=== PATIENT | female | born 1985 | race American Indian/Alaskan Native ===

== ENCOUNTER 2017-08-05 20:56 | Emergency (ER) | payer SELFPAY ==
[2017-08-06 01:07] VITALS: BP 120/80
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
--- NOTE | 2017-08-06 07:58 | XRay Report ---
ROUTINE CHEST, TWO VIEWS: HISTORY: Wheezing. The trachea, heart, mediastinal contour, lung graham and bony thorax are unremarkable. IMPRESSION: Unremarkable chest x-ray.
== END 2017-08-06 01:50 | disposition home or self-care (01) ==
LOC: EDSEX → ED 20:56
DX: J45.901 Unspecified asthma with (acute) exacerbation (principal)
CPT/HCPCS: 71020; 94640; 99283

== ENCOUNTER 2018-01-01 15:52 | Emergency (ER) | payer SELFPAY ==
[2018-01-01 15:58] VITALS: BP 108/58
[2018-01-01] MEDS ORDERED: NORCO 5/325 PO ONE (17:28)
[2018-01-01] MEDS ORDERED: ZOFRAN ODT PO ONE (17:28)
--- NOTE | 2018-01-01 17:29 | Emergency Department Report ---
Chief Complaint: Abdominal Pain Stated Complaint: RT FLANK PAIN - HPI History of Present Illness: 32 yo female presents with right flank pain. Last week she had symptoms of UTI. She treated UTI with AZO. - Exam Vital Signs: Vital Signs 01/01/18 15:55 Temperature 97.9 F Pulse Rate 85 Respiratory 18 Rate Blood Pressure 108/58 O2 Sat by Pulse 98 Oximetry MSE screening note: Focused history and physical exam performed. Due to findings the following was ordered: ED Disposition for MSE Condition: Stable Instructions: Abdominal Pain (ED)
--- NOTE | 2018-01-01 17:35 | Emergency Department Report ---
ED Female HPI - General Chief complaint: Abdominal Pain Stated complaint: RT FLANK PAIN Time Seen by Provider: 01/01/18 17:00 Source: patient, family, EMS Mode of arrival: Ambulatory Limitations: No Limitations - History of Present Illness Initial comments: Patient complain right flank pain 2 days. Reports nausea with some vomiting, positive urinary burning denies any urinary burning frequency or urgency. Denies any vaginal discharge or bleeding. Pain is located right flank, 9 out of 10, crampy and throbbing. No cyax-gfy-sikctww medication taken. Denies any abdominal pain. She tolerated oral liquid but she said not much. she's had similar episode in the past and denies any history of kidney stones. 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 denies: vaginal discharge, vaginal bleeding, abdominal pain, fever/chills, headaches, loss of appetite, hematuria, rash, seizure, shortness of breath, syncope, weakness - Related Data Sexually active: No Previous Rx's Medication Instructions Recorded Last Taken Type ALBUTEROL Inhaler [Proair] 1 puff IH TID #1 inha 08/06/17 Unknown Rx HYDROcodone/APAP 5-325 [[place] 1 each PO Q6HR PRN #12 tablet 01/01/18 Unknown Rx 5/325] Ondansetron [Zofran Odt] 4 mg PO Q8H PRN #12 tab.rapdis 01/01/18 Unknown Rx Sulfamethoxazole/Trimethoprim 1 each PO BID 10 Days #20 tablet 01/01/18 Unknown Rx [Bactrim DS TAB] Allergies Allergy/AdvReac Type Severity Reaction Status Date / Time No Known Allergies Allergy Unverified 08/05/17 21:04 ED Review of Systems ROS: Stated complaint: RT FLANK PAIN Other details as noted in HPI Comment: All other systems reviewed and negative Constitutional: no symptoms reported Eyes: denies: eye discharge ENT: denies: ear pain, throat pain, congestion Respiratory: no symptoms reported Cardiovascular: denies: chest pain, palpitations, dyspnea on exertion, orthopnea Gastrointestinal: nausea, vomiting. denies: abdominal pain, diarrhea, constipation, hematemesis, melena, hematochezia Genitourinary: denies: dysuria, discharge, abnormal menses Musculoskeletal: back pain. denies: joint swelling, arthralgia, myalgia Skin: denies: rash Neurological: denies: headache, weakness, numbness, paresthesias, confusion, abnormal gait, vertigo ED Past Medical Hx - Past Medical History Previous Medical History?: Yes Hx Asthma: Yes - Surgical History Past Surgical History?: No - Family History Family history: no significant - Social History Smoking Status: Never Smoker Substance Use Type: Alcohol, Marijuana - Medications Home Medications: Home Medications Medication Instructions Recorded Confirmed Last Taken Type ALBUTEROL Inhaler [Proair] 1 puff IH TID #1 inha 08/06/17 Unknown Rx HYDROcodone/APAP 5-325 [[place] 1 each PO Q6HR PRN #12 tablet 01/01/18 Unknown Rx 5/325] Ondansetron [Zofran Odt] 4 mg PO Q8H PRN #12 tab.rapdis 01/01/18 Unknown Rx Sulfamethoxazole/Trimethoprim 1 each PO BID 10 Days #20 tablet 01/01/18 Unknown Rx [Bactrim DS TAB] ED Physical Exam - General Limitations: No Limitations General appearance: alert, in no apparent distress - Head Head exam: Present: atraumatic, normocephalic, normal inspection - Eye Eye exam: Present: normal appearance, PERRL, EOMI. Absent: periorbital swelling , periorbital tenderness Pupils: Present: normal accommodation - ENT ENT exam: Present: normal exam, normal orophraynx, mucous membranes moist, TM's normal bilaterally, normal external ear exam - Neck Neck exam: Present: normal inspection, full ROM, other (no C-spine tenderness). Absent: tenderness, meningismus, lymphadenopathy, thyromegaly - Respiratory Respiratory exam: Present: normal lung sounds bilaterally. Absent: respiratory distress, wheezes, rales, rhonchi, stridor, chest wall tenderness - Cardiovascular Cardiovascular Exam: Present: regular rate, normal rhythm, normal heart sounds. Absent: systolic murmur, diastolic murmur - GI/Abdominal GI/Abdominal exam: Present: soft, normal bowel sounds. Absent: distended, tenderness, guarding, rebound, rigid, hyperactive bowel sounds, hypoactive bowel sounds, organomegaly - Extremities Exam Extremities exam: Present: normal inspection, full ROM, normal capillary refill , other (No clubbing, cyanosis or edema. +2 pulses in all extremities and no neurovascular compromise). Absent: tenderness, pedal edema, joint swelling, calf tenderness - Back Exam Back exam: Present: normal inspection, full ROM, CVA tenderness (R), rash noted , other (ambulates without any difficulties). Absent: tenderness, CVA tenderness (L), muscle spasm, paraspinal tenderness, vertebral tenderness - Neurological Exam Neurological exam: Present: alert, oriented X3, normal gait, reflexes normal. Absent: motor sensory deficit - Psychiatric Psychiatric exam: Present: normal affect, normal mood - Skin Skin exam: Present: warm, dry, intact, normal color. Absent: rash ED Course Vital Signs 01/01/18 01/01/18 01/01/18 15:55 17:37 17:42 Temperature 97.9 F Pulse Rate 85 Respiratory 18 18 18 Rate Blood Pressure 108/58 O2 Sat by Pulse 98 Oximetry Vital Signs 01/01/18 01/01/18 01/01/18 15:55 17:37 17:42 Temperature 97.9 F Pulse Rate 85 Respiratory 18 18 18 Rate Blood Pressure 108/58 O2 Sat by Pulse 98 Oximetry - Reevaluation(s) Reevaluation #1: 01/01/18 18:15 Patient was given 5/325 one tablet earlier, she was given Toradol 60 mg IM and Zofran 4 mg ODT for relief of pain. She is no longer nauseous and able tolerate 4 cups of cranberry juice with any nausea or vomiting. Patient's accident for something to eat. Reevaluation #2: 01/01/18 19:32 Patient given Rocephin 1 g IM in emergency room for mild pyelonephritis. Urine culture pending is negative. ED Medical Decision Making - Lab Data Result diagrams: 01/01/18 17:44 01/01/18 17:44 Lab Results 01/01/18 01/01/18 01/01/18 Range/Units 17:44 17:44 Unknown WBC 6.3 (4.5-11.0) K/mm3 RBC 4.60 (3.65-5.03) M/mm3 Hgb 10.6 (10.1-14.3) gm/dl Hct 33.1 (30.3-42.9) % MCV 72 L (79-97) fl MCH 23 L (28-32) pg MCHC 32 (30-34) % RDW 19.0 H (13.2-15.2) % Plt Count 280 (140-440) K/mm3 Lymph % (Auto) 36.3 H (13.4-35.0) % [place] % (Auto) 8.4 H (0.0-7.3) % Eos % (Auto) 3.0 (0.0-4.3) % Baso % (Auto) 0.2 (0.0-1.8) % Lymph # 2.3 (1.2-5.4) K/mm3 [place] # 0.5 (0.0-0.8) K/mm3 Eos # 0.2 (0.0-0.4) K/mm3 Baso # 0.0 (0.0-0.1) K/mm3 Seg Neutrophils % 52.1 (40.0-70.0) % Seg Neutrophils # 3.3 (1.8-7.7) K/mm3 Sodium 138 (137-145) mmol/L Potassium 3.7 (3.6-5.0) mmol/L Chloride 99.8 (98-107) mmol/L Carbon Dioxide 25 (22-30) mmol/L Anion Gap 17 mmol/L BUN 10 (7-17) mg/dL Creatinine 0.3 L (0.7-1.2) mg/dL Estimated GFR > 60 ml/min BUN/Creatinine Ratio 33 % Glucose 82 (65-100) mg/dL Calcium 9.0 (8.4-10.2) mg/dL Urine Color Yellow (Yellow) Urine Turbidity Clear (Clear) Urine pH 6.0 (5.0-7.0) Ur Specific [place] 1.015 (1.003-1.030) Urine Protein <15 mg/dl (Negative) mg/dL Urine Glucose (UA) Neg (Negative) mg/dL Urine Ketones Neg (Negative) mg/dL Urine Blood Sm (Negative) Urine Nitrite Pos (Negative) Ur Reducing Substances Not Reportable Urine Bilirubin Neg (Negative) Urine Ictotest Not Reportable Urine Urobilinogen < 2.0 (<2.0) mg/dL Ur Leukocyte Esterase Mod (Negative) Urine WBC (Auto) > 182.0 H (0.0-6.0) /HPF Urine RBC (Auto) 6.0 (0.0-6.0) /HPF U Epithel Cells (Auto) 2.0 (0-13.0) /HPF Urine Bacteria (Auto) 2+ (Negative) /HPF Urine Mucus 1+ /HPF Urine HCG, Qual Negative (Negative) Urine culture pending - Medical Decision Making ED course: Patient here report nausea vomiting or right flank pain has been ongoing for 2 days with also urinary burning. Physical findings for right CVA tenderness. Laboratory findings for a stable CBC and BMP. Urinalysis negative and positive white blood cell, positive blood, positive nitrite and positive bacteria and positive leukocyte Estrace. This is discussed patient and she voiced understanding and I also instructed her that she needs to return to the hospital if she develops fever, chills, uncontrollable nausea and vomiting, increase in flank pain and blood in her urine. Patient was given Hundred 5/325 one tablet for pain and later Toradol 60 mg IM and Zofran 4 mg ODT and she forcibly for pain and nausea she is able to tolerate any fluids in emergency room without any nausea or vomiting and says she felt better. Patient does not have a primary care discussed with her that she needs to follow -up in 2 days at [facility] follow-up pyelonephritis. Patient discharged home on Bactrim DS, Zofran and Hundred. Critical care attestation.: If time is entered above; I have spent that time in minutes in the direct care of this critically ill patient, excluding procedure time. ED Disposition Clinical Impression: Pyelonephritis, Rt flank pain, Dysuria Nausea & vomiting Qualifiers: Vomiting type: unspecified Vomiting Intractability: non-intractable Qualified Code(s): R11.2 - Nausea with vomiting, unspecified Disposition: DC-01 TO HOME OR SELFCARE Is pt being admited?: No Does the pt Need Aspirin: No Condition: Stable Instructions: Flank Pain (ED), Acute Pyelonephritis (ED), Acute Nausea and Vomiting (ED) Additional Instructions: Follow-up with outside Medical Center in 2 days pyelonephritis which means you have an infection in your kidney. You will need suturing at least 3 L of fluid to close water and cranberry juice daily to flush her kidney out Take antibiotic as prescribed. If you develop, increase in nausea vomiting, abdominal and increased flank pain , fever and/or chills, increased urinary burning or blood in urine please return to the emergency room otherwise follow-up with primary care. Please do not drive or operate heavy machinery while taking Hundred as this medication causes drowsiness Prescriptions: HYDROcodone/APAP 5-325 [[place]undred 5/325] 1 each PO Q6HR PRN #12 tablet PRN Reason: Pain Ondansetron [Zofran Odt] 4 mg PO Q8H PRN #12 tab.rapdis PRN Reason: Nausea And Vomiting Sulfamethoxazole/Trimethoprim [Bactrim DS TAB] 1 each PO BID 10 Days #20 tablet Referrals: PRIMARY CARE, [Primary Care Provider] - 3-5 Days [facility] [Outside] - 01/03/18 Forms: Work/School Release Form(ED)
[2018-01-01] MEDS ORDERED: TORADOL IM ONE (17:36)
[2018-01-01 18:25] LABS: Basophils % (Auto) 0.2 % (0.0-1.8); Eosinophils # (Auto) 0.2 K/mm3 (0.0-0.4); Hematocrit 33.1 % (30.3-42.9); Hemoglobin 10.6 gm/dl (10.1-14.3); Lymphocytes # (Auto) 2.3 K/mm3 (1.2-5.4); Lymphocytes % (Auto) 36.3 % (13.4-35.0); Mean Corpuscular HGB Conc 32 % (30-34); Mean Corpuscular Volume 72 fl (79-97); Monocytes # (Auto) 0.5 K/mm3 (0.0-0.8); Monocytes % (Auto) 8.4 % (0.0-7.3); Platelet Count 280 K/mm3 (140-440)
[2018-01-01 18:28] LABS: Mean Corpuscular Hemoglobin 23 pg (28-32)
[2018-01-01 18:35] LABS: BUN/Creatinine Ratio 33; Blood Urea Nitrogen 10 mg/dL (7-17); Hemolysis Index 0
[2018-01-01 18:41] LABS: HCG Qualitative,Urine Negative (Negative)
[2018-01-01 18:43] LABS: Bacteria,Urine 2+ /HPF (Negative); Bilirubin,Urine NEG (Negative); Blood,Urine SM (Negative); Color,Urine Yellow (Yellow); Mucus,Urine 1+ /HPF; Nitrite,Urine POS (Negative); Protein,Urine <15 mg/dL mg/dL (Negative); Urobilinogen,Urine < 2.0 mg/dL (<2.0)
[2018-01-01 18:45] LABS: WBC,Urine > 182.0 /HPF (0.0-6.0)
[2018-01-01] MEDS ORDERED: ROCEPHIN IM STA (19:05)
== END 2018-01-01 20:10 | disposition home or self-care (01) ==
LOC: ED 15:52
DX: N12 Tubulo-interstitial nephritis, not specified as acute or chronic (principal); R30.0 Dysuria; R10.30 Lower abdominal pain, unspecified; F12.10 Cannabis abuse, uncomplicated; J45.909 Unspecified asthma, uncomplicated
CPT/HCPCS: 36415; 80048; 81001; 81025; 85025; 96372; 99284; J0696; J1885; Q0162

== ENCOUNTER 2018-08-31 15:51 | Emergency (ER) | payer SELFPAY ==
[2018-08-31] MEDS ORDERED: NACL 0.9% 1000 ML 1,000 ML IV ONE ×3 (16:19→23:08)
[2018-08-31 16:45] LABS: Basophils % (Auto) 0.4 % (0.0-1.8); Hematocrit 38.2 % (30.3-42.9); Hemoglobin 12.3 gm/dl (10.1-14.3); Lymphocytes # (Auto) 0.9 K/mm3 (1.2-5.4); Lymphocytes % (Auto) 9.9 % (13.4-35.0); Mean Corpuscular HGB Conc 32 % (30-34); Mean Corpuscular Volume 72 fl (79-97); Monocytes # (Auto) 0.3 K/mm3 (0.0-0.8); Monocytes % (Auto) 3.3 % (0.0-7.3); Platelet Count 296 K/mm3 (140-440); Red Blood Count 5.32 M/mm3 (3.65-5.03)
[2018-08-31 17:02] LABS: Alanine Aminotransferase 12 units/L (7-56); Albumin 4.6 g/dL (3.9-5); BUN/Creatinine Ratio 30; Blood Urea Nitrogen 9 mg/dL (7-17); Calcium 9.7 mg/dL (8.4-10.2); Hemolysis Index 3; Lipase 15 units/L (13-60)
[2018-08-31 17:08] LABS: Bacteria,Urine 1+ /HPF (Negative); Bilirubin,Urine NEG (Negative); Blood,Urine NEG (Negative); Color,Urine Yellow (Yellow); Mucus,Urine 3+ /HPF; Urobilinogen,Urine < 2.0 mg/dL (<2.0)
[2018-08-31 17:15] LABS: Mean Corpuscular Hemoglobin 23 pg (28-32); Red Cell Distribution Width 20.6 % (13.2-15.2)
[2018-08-31] MEDS ORDERED: K-DUR PO ONE (20:12)
--- NOTE | 2018-08-31 20:12 | Emergency Department Report ---
ED Abdominal Pain HPI - General Chief Complaint: Abdominal Pain Stated Complaint: NAUSEA/DEHYDRATED Time Seen by Provider: 08/31/18 20:11 Source: patient Mode of arrival: Ambulatory Limitations: No Limitations - History of Present Illness MD Complaint: abdominal pain -: Gradual, week(s) (1) Location: LUQ Radiation: none Migration to: no migration Severity: moderate Severity scale (0 -10): 5 Quality: sharp Consistency: constant Improves With: nothing Worsens With: nothing Associated Symptoms: nausea, vomiting - Related Data LMP (females 10-50): Previous Rx's Medication Instructions Recorded Last Taken Type ALBUTEROL Inhaler (OR & NICU) 1 puff IH TID #1 inha 08/06/17 Unknown Rx [Proair] HYDROcodone/APAP 5-325 [[place] 1 each PO Q6HR PRN #12 tablet 01/01/18 Unknown Rx 5/325] Ondansetron [Zofran Odt] 4 mg PO Q8H PRN #12 tab.rapdis 01/01/18 Unknown Rx Sulfamethoxazole/Trimethoprim 1 each PO BID 10 Days #20 tablet 01/01/18 Unknown Rx [Bactrim DS TAB] Doxylamine Succinate/Vit B6 1 each PO TID PRN #30 tablet. 09/01/18 Unknown Rx [Amanda Reyes 10-10 mg Tablet] Allergies Allergy/AdvReac Type Severity Reaction Status Date / Time No Known Allergies Allergy Unverified 08/05/17 21:04 ED Review of Systems ROS: Stated complaint: NAUSEA/DEHYDRATED Other details as noted in HPI Comment: All other systems reviewed and negative Constitutional: denies: chills, fever Eyes: denies: eye pain ENT: denies: ear pain Respiratory: denies: cough, orthopnea, shortness of breath Cardiovascular: chest pain, palpitations. denies: dyspnea on exertion Endocrine: no symptoms reported Gastrointestinal: abdominal pain, nausea, vomiting. denies: diarrhea, constipation Genitourinary: denies: urgency, dysuria, frequency, discharge Musculoskeletal: denies: back pain Skin: denies: rash, lesions Neurological: denies: headache, weakness, numbness, paresthesias, confusion Psychiatric: denies: anxiety, depression Hematological/Lymphatic: denies: easy bleeding, easy bruising ED Past Medical Hx - Past Medical History Hx Asthma: Yes - Surgical History Additional Surgical History: - Social History Smoking Status: Never Smoker Substance Use Type: None - Medications Home Medications: Home Medications Medication Instructions Recorded Confirmed Last Taken Type ALBUTEROL Inhaler (OR & NICU) 1 puff IH TID #1 inha 08/06/17 Unknown Rx [Proair] HYDROcodone/APAP 5-325 [[place] 1 each PO Q6HR PRN #12 tablet 01/01/18 Unknown Rx 5/325] Ondansetron [Zofran Odt] 4 mg PO Q8H PRN #12 tab.rapdis 01/01/18 Unknown Rx Sulfamethoxazole/Trimethoprim 1 each PO BID 10 Days #20 tablet 01/01/18 Unknown Rx [Bactrim DS TAB] Doxylamine Succinate/Vit B6 1 each PO TID PRN #30 tablet. 09/01/18 Unknown Rx [Diclegis Dr 10-10 mg Tablet] ED Physical Exam - General Limitations: No Limitations General appearance: alert, in no apparent distress - Head Head exam: Present: atraumatic, normocephalic, normal inspection - Eye Eye exam: Present: normal appearance, PERRL, EOMI Pupils: Present: normal accommodation - ENT ENT exam: Present: normal exam, mucous membranes dry - Neck Neck exam: Present: normal inspection, full ROM. Absent: tenderness - Respiratory Respiratory exam: Present: normal lung sounds bilaterally. Absent: respiratory distress, wheezes, rales, rhonchi, stridor - Cardiovascular Cardiovascular Exam: Present: regular rate, normal rhythm, normal heart sounds - GI/Abdominal GI/Abdominal exam: Present: soft, normal bowel sounds. Absent: distended, tenderness, guarding, rebound, rigid - Extremities Exam Extremities exam: Present: normal inspection, full ROM, normal capillary refill. Absent: tenderness - Back Exam Back exam: Present: normal inspection, full ROM. Absent: tenderness, CVA tenderness (R), CVA tenderness (L) - Neurological Exam Neurological exam: Present: alert, oriented X3, CN II-XII intact - Psychiatric Psychiatric exam: Present: normal affect, normal mood - Skin Skin exam: Present: warm, dry, intact, normal color. Absent: rash ED Course Vital Signs 08/31/18 08/31/18 08/31/18 16:15 20:10 20:30 Temperature 98.7 F Pulse Rate 97 H 62 84 Respiratory 20 13 17 Rate Blood Pressure 121/81 128/72 Blood Pressure 121/72 [Right] O2 Sat by Pulse 100 100 98 Oximetry 08/31/18 08/31/18 08/31/18 21:00 21:46 22:00 Temperature Pulse Rate 95 H 75 130 H Respiratory 24 15 15 Rate Blood Pressure 128/72 121/71 140/76 Blood Pressure [Right] O2 Sat by Pulse 98 Oximetry 08/31/18 08/31/18 08/31/18 22:16 22:30 22:46 Temperature Pulse Rate 81 91 H 87 Respiratory 23 21 23 Rate Blood Pressure 140/76 112/68 112/68 Blood Pressure [Right] O2 Sat by Pulse 99 Oximetry 08/31/18 08/31/18 09/01/18 23:16 23:30 00:16 Temperature Pulse Rate 90 82 84 Respiratory 18 13 22 Rate Blood Pressure 111/50 125/65 138/68 Blood Pressure [Right] O2 Sat by Pulse Oximetry 09/01/18 00:30 Temperature Pulse Rate 97 H Respiratory 24 Rate Blood Pressure 118/56 Blood Pressure [Right] O2 Sat by Pulse Oximetry - Reevaluation(s) Reevaluation #1: 09/01/18 00:42 On reevaluation, patient was able to drink juices, eat crackles and apple sauce in the ED without vomiting. She tolerated a by mouth challenge. ED Medical Decision Making - Lab Data Result diagrams: 08/31/18 16:27 08/31/18 16:27 Lab Results 08/31/18 08/31/18 08/31/18 Range/Units 16:27 16:27 16:27 WBC 9.2 (4.5-11.0) K/mm3 RBC 5.32 H (3.65-5.03) M/mm3 Hgb 12.3 (10.1-14.3) gm/dl Hct 38.2 (30.3-42.9) % MCV 72 L (79-97) fl MCH 23 L (28-32) pg MCHC 32 (30-34) % RDW 20.6 H (13.2-15.2) % Plt Count 296 (140-440) K/mm3 Lymph % (Auto) 9.9 L (13.4-35.0) % [place] % (Auto) 3.3 (0.0-7.3) % Eos % (Auto) 0.0 (0.0-4.3) % Baso % (Auto) 0.4 (0.0-1.8) % Lymph # 0.9 L (1.2-5.4) K/mm3 [place] # 0.3 (0.0-0.8) K/mm3 Eos # 0.0 (0.0-0.4) K/mm3 Baso # 0.0 (0.0-0.1) K/mm3 Seg Neutrophils % 86.4 H (40.0-70.0) % Seg Neutrophils # 7.9 H (1.8-7.7) K/mm3 Sodium 137 (137-145) mmol/L Potassium 3.3 L (3.6-5.0) mmol/L Chloride 101.0 (98-107) mmol/L Carbon Dioxide 19 L (22-30) mmol/L Anion Gap 20 mmol/L BUN 9 (7-17) mg/dL Creatinine 0.3 L (0.7-1.2) mg/dL Estimated GFR > 60 ml/min BUN/Creatinine Ratio 30 % Glucose 89 (65-100) mg/dL Calcium 9.7 (8.4-10.2) mg/dL Total Bilirubin 0.70 (0.1-1.2) mg/dL AST 17 (5-40) units/L ALT 12 (7-56) units/L Alkaline Phosphatase 66 (35-129) units/L Total Protein 8.2 (6.3-8.2) g/dL Albumin 4.6 (3.9-5) g/dL Albumin/Globulin Ratio 1.3 % Lipase 15 (13-60) units/L HCG, Quant 99168 H (0-4) mIU/mL Urine Color (Yellow) Urine Turbidity (Clear) Urine pH (5.0-7.0) Ur Specific [place] (1.003-1.030) Urine Protein (Negative) mg/dL Urine Glucose (UA) (Negative) mg/dL Urine Ketones (Negative) mg/dL Urine Blood (Negative) Urine Nitrite (Negative) Urine Bilirubin (Negative) Urine Urobilinogen (<2.0) mg/dL Ur Leukocyte Esterase (Negative) Urine WBC (Auto) (0.0-6.0) /HPF Urine RBC (Auto) (0.0-6.0) /HPF U Epithel Cells (Auto) (0-13.0) /HPF Urine Bacteria (Auto) (Negative) /HPF Urine Mucus /HPF 08/31/18 Range/Units 16:32 WBC (4.5-11.0) K/mm3 RBC (3.65-5.03) M/mm3 Hgb (10.1-14.3) gm/dl Hct (30.3-42.9) % MCV (79-97) fl MCH (28-32) pg MCHC (30-34) % RDW (13.2-15.2) % Plt Count (140-440) K/mm3 Lymph % (Auto) (13.4-35.0) % [place] % (Auto) (0.0-7.3) % Eos % (Auto) (0.0-4.3) % Baso % (Auto) (0.0-1.8) % Lymph # (1.2-5.4) K/mm3 [place] # (0.0-0.8) K/mm3 Eos # (0.0-0.4) K/mm3 Baso # (0.0-0.1) K/mm3 Seg Neutrophils % (40.0-70.0) % Seg Neutrophils # (1.8-7.7) K/mm3 Sodium (137-145) mmol/L Potassium (3.6-5.0) mmol/L Chloride (98-107) mmol/L Carbon Dioxide (22-30) mmol/L Anion Gap mmol/L BUN (7-17) mg/dL Creatinine (0.7-1.2) mg/dL Estimated GFR ml/min BUN/Creatinine Ratio % Glucose (65-100) mg/dL Calcium (8.4-10.2) mg/dL Total Bilirubin (0.1-1.2) mg/dL AST (5-40) units/L ALT (7-56) units/L Alkaline Phosphatase (35-129) units/L Total Protein (6.3-8.2) g/dL Albumin (3.9-5) g/dL Albumin/Globulin Ratio % Lipase (13-60) units/L HCG, Quant (0-4) mIU/mL Urine Color Yellow (Yellow) Urine Turbidity Slightly-cloudy (Clear) Urine pH 5.0 (5.0-7.0) Ur Specific [place] 1.027 (1.003-1.030) Urine Protein 100 mg/dl (Negative) mg/dL Urine Glucose (UA) Neg (Negative) mg/dL Urine Ketones 80 (Negative) mg/dL Urine Blood Neg (Negative) Urine Nitrite Neg (Negative) Urine Bilirubin Neg (Negative) Urine Urobilinogen < 2.0 (<2.0) mg/dL Ur Leukocyte Esterase Neg (Negative) Urine WBC (Auto) 5.0 (0.0-6.0) /HPF Urine RBC (Auto) 3.0 (0.0-6.0) /HPF U Epithel Cells (Auto) 7.0 (0-13.0) /HPF Urine Bacteria (Auto) 1+ (Negative) /HPF Urine Mucus 3+ /HPF - Radiology Data Radiology results: report reviewed, image reviewed Live intrauterine twin gestation about 6-7 weeks. - Medical Decision Making Hyperemesis Gravidarum. Plan . Will discharge home with anti-emetics and referral to Dr. Mansoor Cervantes for follow-up. Critical care attestation.: If time is entered above; I have spent that time in minutes in the direct care of this critically ill patient, excluding procedure time. ED Disposition Clinical Impression: Hyperemesis gravidarum, Abdominal pain affecting , Nausea and vomiting during Abdominal pain Qualifiers: Abdominal location: left upper quadrant Qualified Code(s): R10.12 - Left upper quadrant pain Twin Qualifiers: Multiple gestation type: unspecified Trimester: first trimester Qualified Code( s): O30.001 - Twin , unspecified number of placenta and unspecified number of amniotic sacs, first trimester Disposition: DC- TO HOME OR SELFCARE Is pt being admited?: No Does the pt Need Aspirin: No Condition: Stable Instructions: Abdominal Pain (ED) Additional Instructions: Please follow up with the sports book server Dr Mansoor Cervantes tomorrow morning. Prescriptions: Doxylamine Succinate/Vit B6 [Amanda Reyes 10-10 mg Tablet] 1 each PO TID PRN #[address] HOANG Reason: Nausea And Vomiting Referrals: PRIMARY CARE, [Primary Care Provider] - 3-5 Days MANSOOR CERVANTES MD [Staff Physician] - 3-5 Days Forms: Work/School Release Form(ED) Time of Disposition: 00:53
[2018-08-31] MEDS ORDERED: REGLAN IV ONE (20:15)
--- NOTE | 2018-08-31 22:25 | Ultrasound Report ---
FINAL REPORT EXAM: US OB < = 14 WEEKS FETUS HISTORY: abdominal pain TECHNIQUE: Transabdominal grayscale, color flow and M-mode imaging of the pelvis was performed. Comparison: Transvaginal study also performed today FINDINGS: The uterus measures 9.7 centimeters x 6.8 centimeters x 8.8 centimeters. There is demonstration of an intrauterine twin gestation with 2 yolk sacs and 2 poles.. Twin A is demonstrated to have cardiac activity by color-flow imaging and a estimated gestational age of 7 weeks by measurements of crown-rump length. heart rate of twin a is measured at 130 beats per minute. Twin B is best evaluated on the transvaginal study. The ovaries are not visualized on the transabdominal study. IMPRESSION: 1. Demonstration of living intrauterine twin gestation. 2. Twin A estimated gestational age is 7 weeks by measurements of crown-rump length. Twin B is best evaluated on the transvaginal study also performed today.
--- NOTE | 2018-08-31 22:37 | Ultrasound Report ---
FINAL REPORT PROCEDURE: Transvaginal OB ultrasound TECHNIQUE: Real-time transvaginal sonography of the uterus, placenta, amniotic fluid, adnexa, and fetus was performed with image documentation. Measurements were obtained to determine age/size. M-mode Doppler was used to document heartbeat.. CPT 92148, HISTORY: abdominal pain COMPARISON: No prior studies are available for comparison. FINDINGS: Twin intrauterine gestation visualized. This examination performed to evaluate twin B which was not as well seen on the transabdominal scan. Living intrauterine gestation, twin a was documented on the transabdominal scan.. Twin B on this scan measures 9.0 millimeters corresponding to an age is 6 weeks 6 days. heart rate of 126 beats per minute. Yolk sac is seen. No evidence of subchorionic hemorrhage. Twin B is on the right. IMPRESSION: Twin intrauterine present. Only twin B was studied in detail which is a living intrauterine gestation. By crown-rump length measurement the estimated age is 6 weeks 6 days placing the EDC at 04/20/2019 +/-0.5 weeks. No subchorionic hemorrhage is seen. Amount of amniotic fluid appears normal. Fetus currently too small to evaluate anatomy. Consider anatomic screen at 18-20 weeks. Please see transabdominal scan for evaluation of twin A.
[2018-09-01 00:51] VITALS: BP 118/56
== END 2018-09-01 01:25 | disposition home or self-care (01) ==
LOC: ED 15:51
DX: O26.891 Other specified pregnancy related conditions, first trimester (principal); O30.001 Twin pregnancy, unspecified number of placenta and unspecified number of amniotic sacs, first trimester; O21.0 Mild hyperemesis gravidarum; Z3A.01 Less than 8 weeks gestation of pregnancy; J45.909 Unspecified asthma, uncomplicated; Z79.899 Other long term (current) drug therapy
CPT/HCPCS: 36415; 76801; 76802; 80053; 81001; 83690; 84702; 85025; 96361; 96374; 99284; J2765; J7030